=== PATIENT | female | born 1950 | race Caucasian/White ===

== ENCOUNTER → 2018-09-30 | Outpatient (CLI) | payer MEDICARE | END | disposition home or self-care (01) | LOC: RAH 09:15 | PROVIDERS: ATTEND Family Medicine | DX: Z12.31 Encounter for screening mammogram for malignant neoplasm of breast (principal) | CPT/HCPCS: 77067 ==

== ENCOUNTER 2018-11-14 11:59 | Emergency (ER) | payer MEDICARE ==
[2018-11-14] MEDS ORDERED: TETANUS/DIPHTHERIA TOXOID [ADULT] 0.5 ML VIAL IM ONE (12:22)
== END 2018-11-14 13:27 | disposition home or self-care (01) ==
LOC: EDH 11:59
DX: S01.01XA Laceration without foreign body of scalp, initial encounter (principal); Z98.890 Other specified postprocedural states; W01.10XA Fall on same level from slipping, tripping and stumbling with subsequent striking against unspecified object, initial encounter; Y93.89 Activity, other specified; Y92.89 Other specified places as the place of occurrence of the external cause; Y99.8 Other external cause status
CPT/HCPCS: 12032; 70450; 90471; 90714

== ENCOUNTER 2018-11-20 08:41 | Emergency (ER) | payer MEDICARE | END 2018-11-20 09:28 | disposition home or self-care (01) | LOC: EDH 08:41 | DX: S01.01XA Laceration without foreign body of scalp, initial encounter (principal); K21.9 Gastro-esophageal reflux disease without esophagitis; Z98.890 Other specified postprocedural states; X58.XXXA Exposure to other specified factors, initial encounter; Y93.89 Activity, other specified; Y92.89 Other specified places as the place of occurrence of the external cause; Y99.8 Other external cause status | CPT/HCPCS: 99281; 99282 ==

== ENCOUNTER → 2019-07-28 | Outpatient (CLI) | payer MEDICARE | END | disposition home or self-care (01) | LOC: RAH 13:51 | PROVIDERS: ATTEND Orthopaedic Surgery Adult Reconstructive Orthopaedic Surgery | DX: M75.101 Unspecified rotator cuff tear or rupture of right shoulder, not specified as traumatic (principal); M75.81 Other shoulder lesions, right shoulder | CPT/HCPCS: 73221 ==

== ENCOUNTER → 2019-10-21 | Outpatient (CLI) | payer MEDICARE | END | disposition home or self-care (01) | LOC: RAH 09:14 | PROVIDERS: ATTEND Family Medicine | DX: Z12.31 Encounter for screening mammogram for malignant neoplasm of breast (principal) | CPT/HCPCS: 77067 ==

== ENCOUNTER 2021-08-05 13:58 | Emergency (ER) | payer MEDICARE ==
[~2021-08-05] VITALS: Ht 172.7 cm; Wt 102.1 kg
[2021-08-05] MEDS ORDERED: L.E.T. GEL 3ML SYG TP ONE (14:53)
[2021-08-05] MEDS ORDERED: BACITRACIN 28.4 GM OINT TP ONE (15:00)
[2021-08-05] MEDS ORDERED: TETANUS/DIPHTHERIA TOXOID [ADULT] 0.5 ML VIAL IM ONE (15:00)
[2021-08-05] MEDS ORDERED: AMOX1TAB16 PO (15:07)
[2021-08-05] MEDS ORDERED: BACI30OI6 TP (15:07)
[2021-08-05 15:51] VITALS: BP 137/96
== END 2021-08-05 15:51 | disposition home or self-care (01) ==
LOC: EDH 13:58
DX: S62.502A Fracture of unspecified phalanx of left thumb, initial encounter for closed fracture (principal); S62.501A Fracture of unspecified phalanx of right thumb, initial encounter for closed fracture; J45.909 Unspecified asthma, uncomplicated; Z98.890 Other specified postprocedural states; W45.8XXA Other foreign body or object entering through skin, initial encounter; Y93.89 Activity, other specified; Y92.89 Other specified places as the place of occurrence of the external cause; Y99.8 Other external cause status
CPT/HCPCS: 90471; 90714

== ENCOUNTER → 2022-04-10 | Outpatient (CLI) | payer MEDICARE ==
[~2022-04-10] MED LIST: AMOX1TAB16 PO; BACI30OI6 TP
== END | disposition home or self-care (01) ==
LOC: RAH 11:23
PROVIDERS: ATTEND Family Medicine
DX: Z12.31 Encounter for screening mammogram for malignant neoplasm of breast (principal)
CPT/HCPCS: 77067

== ENCOUNTER → 2022-08-01 | Outpatient (CLI) | payer MEDICARE | END | disposition home or self-care (01) | LOC: RAH 09:29 | PROVIDERS: ATTEND Family Medicine | DX: Z01.818 Encounter for other preprocedural examination (principal) | CPT/HCPCS: 71046 ==

== ENCOUNTER → 2023-06-28 | Emergency (ER) | payer MEDICARE ==
[~2023-06-28] VITALS: Ht 172.7 cm; Wt 102.1 kg
[~2023-06-28] MED LIST changes: +CLINDAMYCIN IVPB 600MG/50ML 50 ML IV SCH
[2023-06-28 16:08] VITALS: BP 148/66; PULSE 75; RESP 18
[2023-06-28 16:57] LABS: BASOPHILS # (AUTO) 0.05 K/uL (0.00-0.20); BASOPHILS % (AUTO) 0.8 % (0.0-5.0); EOSINOPHILS # (AUTO) 0.27 K/uL (0.00-0.70); EOSINOPHILS % (AUTO) 4.3 % (0.0-8.0); HEMATOCRIT 40.8 % (36-48); IMMATURE GRANULOCYTE ABSOLUTE 0.02 K/uL (0-1); LYMPHOCYTES # (AUTO) 1.3 K/uL (1.0-4.8); LYMPHOCYTES % (AUTO) 20.4 % (21.0-51.0); MEAN CORPUSCULAR HEMOGLOBIN 29.7 pg (27.0-33.0); MEAN CORPUSCULAR HGB CONC 32.4 g/dL (32.0-36.0); MEAN CORPUSCULAR VOLUME 91.9 fL (79-99); MONOCYTES # (AUTO) 0.9 K/uL (0.1-1.0); MONOCYTES % (AUTO) 14.1 % (3.0-13.0); NEUTROPHILS # (AUTO) 3.7 K/uL (1.8-7.7); NEUTROPHILS % (AUTO) 60.1 % (40.0-77.0); PLATELET COUNT (AUTO) 227 K/uL (130-400); RED BLOOD CELL COUNT(AUTO) 4.44 MIL/uL (4.00-5.50); RED CELL DISTRIBUTION WIDTH 13.2 % (11.0-15.5); WHITE BLOOD COUNT (AUTO) 6.2 K/uL (4.8-10.8)
[2023-06-28 17:22] LABS: ALBUMIN 3.2 g/dL (3.5-5.0); BILIRUBIN,TOTAL 0.3 mg/dL (0.2-1.0); CREATININE 0.7 mg/dL (0.5-1.5); POTASSIUM 3.7 mmol/L (3.5-5.1); TOTAL PROTEIN, SERUM 6.8 g/dL (6.0-8.3)
== END ==
LOC: EDH 16:08
DX: L89.612 Pressure ulcer of right heel, stage 2 (principal); J45.909 Unspecified asthma, uncomplicated; Z90.710 Acquired absence of both cervix and uterus; Z79.899 Other long term (current) drug therapy; Z98.890 Other specified postprocedural states
CPT/HCPCS: 36415; 80053; 83605; 85025; 87040